=== PATIENT | female | born 1975 ===

== ENCOUNTER 2017-08-10 10:47 | Emergency (ER) | payer OTHER ==
[2017-08-10 10:56] VITALS: BP 135/68; PULSE 83; RESP 20; TEMP 97.9; O2SAT 98
[2017-08-10 10:57] VITALS: BMI 31.2
--- NOTE | 2017-08-10 11:16 | ED PDOC ---
Lower Extremity Pain/Injury Time Seen by Provider: 08/10/17 11:00 Chief Complaint (Nursing): Lower Extremity Problem/Injury Chief Complaint (Provider): Left leg injury History Per: Patient History/Exam Limitations: no limitations Onset/Duration Of Symptoms: Days (x3 days) Current Symptoms Are (Timing): Still Present Additional Complaint(s): 42 y/o female presents to the ED complaining of pain in left leg x 3 days. Patient was seen in [facility] on 08/08/17 for left Achilles tendon rupture that occurred after dancing and was asked to follow up with infection control specialist. Patient notes persisting pain. Denies any further medical complaints. Past Medical History Reviewed: Historical Data, Nursing Documentation, Vital Signs Vital Signs: Last Vital Signs Temp 97.9 F 08/10/17 10:56 Pulse 83 08/10/17 10:56 Resp 20 08/10/17 10:56 BP 135/68 08/10/17 10:56 Pulse Ox 98 08/10/17 10:56 - Medical History PMH: Chronic Kidney Disease - Surgical History Surgical History: (2) - Family History Family History: States: Unknown Family Hx - Social History Current smoker - smoking cessation education provided: No (former smoker) Alcohol: None Drugs: Denies - Immunization History Hx Tetanus Toxoid Vaccination: No Hx Influenza Vaccination: No Hx Pneumococcal Vaccination: No - Home Medications Home Medications: Ambulatory Orders Medication Instructions Recorded Naproxen [Naprosyn] 1 tab PO BID PRN #25 tab 08/08/17 traMADol [Ultram] 50 mg PO Q8 #20 tab 08/08/17 Ibuprofen [Motrin] 600 mg PO Q8 #12 tab 08/10/17 - Allergies Allergies/Adverse Reactions: Allergies Allergy/AdvReac Type Severity Reaction Status Date / Time No Known Allergies Allergy Verified 08/08/17 08:20 Review of Systems ROS Statement: Except As Marked, All Systems Reviewed And Found Negative (As per HPI, otherwise negative) Musculoskeletal: Positive for: Leg Pain (left leg pain) Physical Exam - Reviewed Nursing Documentation Reviewed: Yes Vital Signs Reviewed: Yes - Physical Exam Appears: Positive for: Non-toxic, No Acute Distress Skin: Positive for: Normal Color, Warm, Dry Cardiovascular/Chest: Positive for: Regular Rate, Rhythm. Negative for: Murmur Respiratory: Positive for: Normal Breath Sounds. Negative for: Accessory Muscle Use, Respiratory Distress Extremity: Positive for: Swelling (mild tendon swelling), Other (left ankle absence of achilles tendon ) Neurologic/Psych: Positive for: Alert, Oriented (x3) - ECG O2 Sat by Pulse Oximetry: 98 (RA) Pulse Ox Interpretation: Normal Medical Decision Making Medical Decision Making: Time: Initial Impression: Plan: Scribe Attestation: Documented by Troy Mccann acting as a scribe for Denisa Sahu MD. D/W Dr Garcia, pt to call office for appt. To be dc'ed with crutches, nonweight bearing. Scribe Attestation: All medical record entries made by the Scribe were at my direction and personally dictated by me. I have reviewed the chart and agree that the record accurately reflects my personal performance of the history, physical exam, medical decision making, and the department course for this patient. I have also personally directed, reviewed, and agree with the discharge instructions and disposition. Disposition - Clinical Impression Clinical Impression: Achilles tendon rupture - Patient ED Disposition Is Patient to be Admitted: No Counseled Patient/Family Regarding: Diagnosis, Need For Followup - Disposition Referrals: Alexander Garcia MD [Staff Provider] - Disposition: Routine/Home Disposition Time: 11:35 Condition: FAIR Prescriptions: Ibuprofen [Motrin] 600 mg PO Q8 #12 tab Instructions: Achilles Tendon Rupture (ED) Forms: [employer] (Sinhala) Print Language: NORTH KOREAN
== END 2017-08-10 12:35 | disposition home or self-care (01) ==
LOC: H.ER 10:47
DX: S86.102A Unspecified injury of other muscle(s) and tendon(s) of posterior muscle group at lower leg level, left leg, initial encounter (principal); X50.9XXA Other and unspecified overexertion or strenuous movements or postures, initial encounter; Y92.89 Other specified places as the place of occurrence of the external cause

== ENCOUNTER 2017-09-02 07:03 | Day surgery (SDC) | payer OTHER ==
[2017-09-02 07:05] VITALS: BMI 31.2
[2017-09-02 07:23] VITALS: RESP 18
--- NOTE | 2017-09-02 07:52 | ED PDOC ---
Lower Extremity Pain/Injury Time Seen by Provider: 09/02/17 07:05 Chief Complaint (Nursing): Lower Extremity Problem/Injury Chief Complaint (Provider): Lower Extremity Problem/Injury History Per: Patient History/Exam Limitations: no limitations Onset/Duration Of Symptoms: Days (x1 month) Current Symptoms Are (Timing): Still Present Additional History Per: Patient Additional Complaint(s): Smita Anne is a 42 year old female with no significant past medical history who presents to the ED complaining of left lower leg pain x1 month. Patient states she tripped and fell while dancing, resulting in her injury. Patient was seen previously at the ED on 08/07/17 and diagnosed with an Achilles tendon rupture. She was advised to followup with Dr. Garcia. States she is presenting to the ED today due to increased pain in the area. PMD: Non-[facility] Provider Past Medical History Reviewed: Historical Data, Nursing Documentation, Vital Signs Vital Signs: Last Vital Signs Temp 97.6 F 09/02/17 07:22 Pulse 75 09/02/17 07:22 Resp 18 09/02/17 07:22 BP 142/79 09/02/17 07:22 Pulse Ox 96 09/02/17 07:22 - Medical History PMH: Chronic Kidney Disease - Surgical History Surgical History: (2) - Family History Family History: States: Unknown Family Hx - Social History Current smoker - smoking cessation education provided: No Ex-Smoker (has not smoked in the last 12 months): Yes Alcohol: None Drugs: Denies - Immunization History Hx Tetanus Toxoid Vaccination: No Hx Influenza Vaccination: No Hx Pneumococcal Vaccination: No - Home Medications Home Medications: Ambulatory Orders Medication Instructions Recorded Docusate [Colace] 100 mg PO TID PRN 09/02/17 Ondansetron [Zofran] 4 mg PO Q4 PRN 09/02/17 oxyCODONE/Acetaminophen [Percocet 1 tab PO Q4 PRN 09/02/17 5/325 mg Tab] - Allergies Allergies/Adverse Reactions: Allergies Allergy/AdvReac Type Severity Reaction Status Date / Time No Known Allergies Allergy Verified 09/02/17 07:15 Review of Systems ROS Statement: Except As Marked, All Systems Reviewed And Found Negative Musculoskeletal: Positive for: Leg Pain (LLE) Physical Exam - Reviewed Nursing Documentation Reviewed: Yes Vital Signs Reviewed: Yes - Physical Exam Appears: Positive for: Well, Non-toxic, No Acute Distress Cardiovascular/Chest: Positive for: Regular Rate, Rhythm. Negative for: Murmur Respiratory: Positive for: Normal Breath Sounds. Negative for: Respiratory Distress Gastrointestinal/Abdominal: Positive for: Normal Exam, Bowel Sounds, Soft. Negative for: Tenderness Extremity: Positive for: Other (Hard cast on left leg from toes to lower leg) Neurologic/Psych: Positive for: Alert, Oriented (x3) - Laboratory Results Result Diagrams: 09/02/17 08:38 09/02/17 08:38 - ECG O2 Sat by Pulse Oximetry: 96 (RA) Pulse Ox Interpretation: Normal Medical Decision Making Medical Decision Making: Time: 07:47 Initial Impression: Evaluation s/p trip and fall Plan: --Patient declining pain medication --Left Foot X-Ray 3 views --Contacted Dr. Garcia Time: 8:16 --Contacted Dr. Garcia. Requested pre-op and blood work on patient. Time: 11:15 --Labs, EKG, and CXR reviewed. Patient stable for admission to OR per Dr. Garcia. Scribe Attestation: Documented by Eric Kitchen, acting as a scribe for Valentine Penaloza MD. Provider Scribe Attestation: All medical record entries made by the Scribe were at my direction and personally dictated by me. I have reviewed the chart and agree that the record accurately reflects my personal performance of the history, physical exam, medical decision making, and the department course for this patient. I have also personally directed, reviewed, and agree with the discharge instructions and disposition. Disposition - Clinical Impression Clinical Impression: Ankle injury - Patient ED Disposition Is Patient to be Admitted: Yes - Disposition Disposition Time: 08:35 Condition: STABLE
[2017-09-02 08:48] LABS: BASO # 0.1 K/uL (0.0-0.2); BASO % 0.7 % (0.0-2.0); EOS # 0.1 K/uL (0.0-0.7); EOS % 1.6 % (0.0-4.0); HEMATOCRIT 43.1 % (34.0-47.0); LYMPH # 3.1 K/uL (1.0-4.3); LYMPH % 33.3 % (20.0-40.0); MEAN CELL VOLUME 88.7 fl (81.0-99.0); MEAN CORPUSCULAR HEMOGLOBIN 29.1 pg (27.0-31.0); MEAN CORPUSCULAR HGB CONC 32.8 g/dL (33.0-37.0); MEAN PLATELET VOLUME 8.6 fl (7.2-11.7); MONO # 0.6 K/uL (0.0-0.8); NEUT # 5.3 K/uL (1.8-7.0); NEUT % 57.4 % (50.0-75.0); NRBC % 0.1 % (0.0-0.0); RED CELL DISTRIBUTION WIDTH 14.2 % (11.5-14.5); WHITE BLOOD COUNT 9.2 K/uL (4.8-10.8)
[2017-09-02 09:21] LABS: ALB/GLOB RATIO 1.4 (1.0-2.1); ALKALINE PHOSPHATASE 40 U/L (38-126); ALT/SGPT 60 U/L (9-52); AST/SGOT 30 U/L (14-36); BILIRUBIN,TOTAL 0.5 mg/dl (0.2-1.3); BLOOD UREA NITROGEN 12 mg/dl (7-17); CALCIUM 9.3 mg/dL (8.4-10.2); CARBON DIOXIDE 22 mmol/L (22-30); CHLORIDE 108 mmol/L (98-107); GFR AFRICAN-AMERICAN > 60; GLUCOSE,RANDOM 99 mg/dL (65-105); POTASSIUM 4.4 MMOL/L (3.6-5.0); SODIUM 142 mmol/l (132-148); TOTAL PROTEIN 7.8 G/DL (6.3-8.2)
--- NOTE | 2017-09-02 11:28 | RAD ---
HISTORY: foot pain COMPARISON: No prior. FINDINGS: LUNGS: The lungs are clear. PLEURA: No significant pleural effusion identified, no pneumothorax apparent. CARDIOVASCULAR: Normal. OSSEOUS STRUCTURES: No significant abnormalities. VISUALIZED UPPER ABDOMEN: Normal. OTHER FINDINGS: None. IMPRESSION: No active pulmonary disease.
[2017-09-02] MEDS ORDERED: Bupivacaine 0.5% Inj(30mL) ONE (12:14)
[2017-09-02] MEDS ORDERED: Rocuronium 10 mg/ml (5 ml) ONE (12:23)
[2017-09-02] MEDS ORDERED: Propofol 10 mg/ml Inj (20 ML) ONE (12:23)
[2017-09-02] MEDS ORDERED: Succinylcholine 200 mg/10 ml Inj IV ONE (12:23)
[2017-09-02] MEDS ORDERED: Lidocaine 4% (Laryng-O-Jet) Kit MM ONE (12:23)
[2017-09-02] MEDS ORDERED: ceFAZolin IV 1 gm in Dextrose 1 GM/50 ML BAG IVPB ONE (12:32)
[2017-09-02] MEDS ORDERED: Lactated Ringer's 1,000 ML IV ONE (12:46)
[2017-09-02] MEDS ORDERED: Midazolam 2 MG/2 ML VIAL ONE (12:49)
[2017-09-02] MEDS ORDERED: Dexamethasone 4 mg/1 ml ONE (13:29)
--- NOTE | 2017-09-02 14:22 | PCM.SURG1 ---
Surgeon's Initial Post Op Note - Surgeon's Notes Surgeon: Alexander Garcia MD Photographic Restorer: Danielito Cardona MD Type of Anesthesia: General Endo Pre-Operative Diagnosis: Left ankle achilles tendon rupture Operative Findings: see op report Post-Operative Diagnosis: same as pre-op dx Operation Performed: Left ankle open achilles tendon repair Specimen/Specimens Removed: none Estimated Blood Loss: EBL {In ML}: 15 Date of Surgery/Procedure: 09/02/17 Time of Surgery/Procedure: 13:30
[2017-09-02] MEDS ORDERED: HYDROmorphone 0.5 mg/0.5 ml ISec IVP PRN (14:24)
[2017-09-02] MEDS ORDERED: Oxycodone/Acetaminophen 5/325 mg Tab PO PRN (14:26)
--- NOTE | 2017-09-02 14:27 | PCM.ANESB2 ---
Popliteal Nerve Block - Popliteal Nerve Block Date of Procedure: 09/02/17 Anesthesiologist: Lars Pre-Procedure Diagnosis: Left Achilles tendon rupture Post-Procedure Diagnosis: Same Procedure Performed: Popliteal Nerve Block Left - Procedure Popliteal Nerve Block: This procedure was explained to the patient that it is for post-operative pain management. Consent was obtained after a thorough discussion with the patient regarding the benefits and possible complications of local anesthetic block of the sciatic nerve at the popliteal level. The patient was brought to the operating room and standard monitors are applied. Time-out was held with the circulating nurse to confirm the correct surgery and the appropriate block. Under general anesthesia, patient's operative leg was gently raised and supported and the groove in between the biceps femoris and vastus lateralis muscles was carefully palpated. The skin approximately 8cm above the popliteal crease was then marked. The ultrasound transducer was then applied to the posterior thigh approximately 8cm above the popliteal crease in the transverse plane and the sciatic nerve before its division was visualized lateral to the popliteal artery and in between the bicep femoris and semimembranosus/ semitendinosus muscles. After identification, the lateral portion of the thigh was prepped with Chloraprep. At this point, a # 21 gauge Stimuplex insulated 4 inch needle was inserted into pre-marked area and advanced in a perpendicular direction. The needle was inserted above the ultrasound transducer in-plane towards the sciatic nerve in a [id number] direction. Needle advancement was performed carefully under direct ultrasound visualization. Nerve stimulator was used and contraction of the __left___ calf was elicited at a current of ___0.4__ MA. After repeated negative aspiration, __2__cc of _0.5___ % ____bupivicaine with 1:200,000 epinephrine was injected and this was flowed with ___25___ cc of ____ 0.5__% ___bupivicaine with 1:200,000 epinephrine . Under ultrasound guidance the local anesthetics were observed surrounding sciatic nerve . The needle was removed intact. The patient tolerated the popliteal nerve block well with stable vital signs and was subsequently prepared for the surgery.
[2017-09-02] MEDS ORDERED: Lactated Ringer's 1,000 ML IV SCH (14:30)
--- NOTE | 2017-09-02 17:18 | RAD ---
PROCEDURE: Left Foot Radiographs. HISTORY: l foot pain COMPARISON: None. FINDINGS: BONES: Cast obscures fine details. There is no acute displaced fracture or bone destruction. Bone alignment and mineralization are normal. 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 SOFT TISSUES: The soft tissues are within normal limits. OTHER FINDINGS: None. IMPRESSION: No acute fracture, dislocation or bone destruction.
[2017-09-02 18:29] VITALS: BP 117/81; PULSE 89; TEMP 97.9; O2SAT 96
--- NOTE | 2017-09-03 08:33 | OP ---
PROCEDURE DATE: 09/02/2017 PREOPERATIVE DIAGNOSIS: Complete Achilles tendon rupture. POSTOPERATIVE DIAGNOSIS: Complete Achilles tendon rupture. PROCEDURES: 1. Left Achilles open repair using FiberWire sutures. 2. Placement of a short leg splint. TYPE OF ANESTHESIA: General. ESTIMATED BLOOD LOSS: 5 mL SPECIMEN: None. COMPLICATIONS: None. HISTORY: The patient is a 42-year-old female who presented to the emergency room with history of Achilles tendon rupture a complete Achilles tendon rupture proximal to the calcaneal tuberosity. The patient was seen in the office, indicated for acute Achilles tendon repair. I reviewed the risk and benefits of the surgery with the patient in detail. The risks included but not limited to bleeding, infection, nerve and vessel damage, continued pain, blood clots among others. I also presented the patient with the option of nonoperative management; however, the patient wanted to proceed with the operative management after careful consideration. DESCRIPTION OF PROCEDURE: The patient was admitted to the ER for acute symptoms of pain. She underwent preoperative medical workup. She was brought into preop holding area. A laterality sheet was completed confirming the patient's left ankle to be correct operative site. An informed consent was signed from the patient. Left ankle was marked. The patient was brought into operating room table. She underwent general anesthesia. She was given appropriate prophylactic antibiotics. She was placed on operating bed in a prone position. The left ankle was draped and prepped in a standard sterile manner and also a tourniquet was applied to the patient's left thigh. First, a timeout was completed confirming the patient's left ankle as the correct operative site. Then, using a #10 blade, a 5- cm incision was made on a medially. Dissection was taken down into the paratenon which was exposed. There was apparent rupture with retraction of the Achilles tendon. Both ends of the ruptured tendon was freed and all the fibrotic tissue was excised for repair. A #2 FiberWires were placed in a Krackow fashion in both ends and with the foot held with plantarflexion, the sutures were tied with all four limbs, with the ankle in about 30 degrees of flexion. The patient had secure fixation. Wound was copiously irrigated. The paratenon was closed using 0 Vicryl sutures. Skin was closed in a standard sterile manner. Afterwards, the patient was placed in a short leg splint. She will remain nonweightbearing. The postop instruction to take DVT prophylaxis. There were no complications of surgery. Alexander Garcia MD
--- NOTE | 2017-09-03 11:25 | CARD ---
APPROVED REPORT EKG Measurement Heart [id number] FL [id number] [id number] <Conclusion> Normal sinus rhythm Normal ECG
== END 2017-09-02 18:30 | disposition home or self-care (01) ==
LOC: H.ER 07:03 → H.ERHOLD 10:30 → UNDOADMIN 10:30 → H.SDS 10:30 → UNDODISIN 18:30 → H.SDS 18:30
PROVIDERS: ATTEND Orthopaedic Surgery
DX: S86.012A Strain of left Achilles tendon, initial encounter (principal); W01.0XXA Fall on same level from slipping, tripping and stumbling without subsequent striking against object, initial encounter; Y93.41 Activity, dancing; Y92.9 Unspecified place or not applicable; N18.9 Chronic kidney disease, unspecified; Z87.891 Personal history of nicotine dependence
CPT/HCPCS: 27650; 71010; 73630; 80053; 81025; 85025; 85610; 86850; 86900; 93005; 99284; J0330; J0690; J1100; J2001; J2250; J2405; J2704; J2765; J3010; J7030; J7120

== ENCOUNTER 2017-10-01 10:46 | Emergency (ER) | payer OTHER ==
[2017-10-01 10:46] VITALS: BMI 31.2
[2017-10-01 11:03] VITALS: BP 125/58; PULSE 83; RESP 18; TEMP 97.8; O2SAT 98
--- NOTE | 2017-10-01 12:38 | ED PDOC ---
Lower Extremity Pain/Injury Time Seen by Provider: 10/01/17 12:30 Chief Complaint (Nursing): Lower Extremity Problem/Injury Chief Complaint (Provider): Wound check History Per: Patient History/Exam Limitations: no limitations Onset/Duration Of Symptoms: Days (x3) Current Symptoms Are (Timing): Still Present Additional Complaint(s): 42 y/o female with a history of Achilles rupture s/p surgical repair, who presents to the ER today for a wound check. Patient had the Achilles tendon repair with Dr. Garcia on 09/02/17. Now complains of area of pain along the wound and is concerned because she is supposed to begin physical therapy today. Denies any fever or chills. Patient has her next appointment with Dr. Garcia on Friday. PMD: Provider TBD Past Medical History Reviewed: Historical Data, Nursing Documentation, Vital Signs Vital Signs: Last Vital Signs Temp 97.8 F 10/01/17 10:59 Pulse 83 10/01/17 10:59 Resp 18 10/01/17 10:59 BP 125/58 L 10/01/17 10:59 Pulse Ox 98 10/01/17 10:59 - Medical History PMH: Chronic Kidney Disease - Surgical History Surgical History: (2) Other surgeries: Achilles tendon repair 09/02/17 - Family History Family History: States: Unknown Family Hx - Social History Ex-Smoker (has not smoked in the last 12 months): Yes Alcohol: None Drugs: Denies - Immunization History Hx Tetanus Toxoid Vaccination: No Hx Influenza Vaccination: No Hx Pneumococcal Vaccination: No - Home Medications Home Medications: Ambulatory Orders Medication Instructions Recorded Docusate [Colace] 100 mg PO TID PRN 09/02/17 Ondansetron [Zofran] 4 mg PO Q4 PRN 09/02/17 oxyCODONE/Acetaminophen [Percocet 1 tab PO Q4 PRN 09/02/17 5/325 mg Tab] - Allergies Allergies/Adverse Reactions: Allergies Allergy/AdvReac Type Severity Reaction Status Date / Time No Known Allergies Allergy Verified 10/01/17 10:59 Review of Systems ROS Statement: Except As Marked, All Systems Reviewed And Found Negative Constitutional: Negative for: Fever, Chills Musculoskeletal: Positive for: Leg Pain (near incision site) Skin: Positive for: Lesions (surgical incision at left Achilles tendon) Physical Exam - Reviewed Nursing Documentation Reviewed: Yes Vital Signs Reviewed: Yes - Physical Exam Appears: Positive for: Well, Non-toxic, No Acute Distress Head Exam: Positive for: ATRAUMATIC, NORMAL INSPECTION, NORMOCEPHALIC Skin: Positive for: Normal Color, Warm, Dry Eye Exam: Positive for: EOMI, Normal appearance, PERRL Extremity: Positive for: Other (Well-healing incision at the posterior aspect of left distal leg, no erythema noted. Small region of thick, hardened skin, tender with palpation. Negative homans sign). Negative for: Calf Tenderness ( and calf swelling) Neurologic/Psych: Positive for: Alert, Oriented - ECG O2 Sat by Pulse Oximetry: 98 (RA) Pulse Ox Interpretation: Normal Medical Decision Making Medical Decision Making: Clinical Impression: Leg pain Plan: Patient will follow up with surgeon as scheduled on Friday. There are no signs or symptoms of infection at this time. Advised patient to put extra gauze in area to avoid pressure/irritation from shoes. There is agreement to discharge plan. Return if symptoms persist or worsen. Scribe Attestation: Documented by Gela Walters, acting as a scribe for Charanjit Mccann PA-C Provider Scribe Attestation: All medical record entries made by the Scribe were at my direction and personally dictated by me. I have reviewed the chart and agree that the record accurately reflects my personal performance of the history, physical exam, medical decision making, and the department course for this patient. I have also personally directed, reviewed, and agree with the discharge instructions and disposition. Disposition - Clinical Impression Clinical Impression: Leg pain - Patient ED Disposition Is Patient to be Admitted: No Counseled Patient/Family Regarding: Diagnosis, Need For Followup - Disposition Disposition: Routine/Home Disposition Time: 12:39 Condition: FAIR Additional Instructions: Follow up with Dr. Garcia as scheduled. Apply extra gauze to wound area. Instructions: Acute Wound Care (ED) Print Language: [place] CITIZEN
== END 2017-10-01 13:09 | disposition home or self-care (01) ==
LOC: H.ER 10:46
DX: Z48.89 Encounter for other specified surgical aftercare (principal)

== ENCOUNTER 2017-10-13 13:25 | Emergency (ER) | payer OTHER ==
[2017-10-13 13:25] VITALS: BMI 34.2
[2017-10-13 13:41] VITALS: BP 115/55; PULSE 68; RESP 18; TEMP 98; O2SAT 98
--- NOTE | 2017-10-13 15:05 | ED PDOC ---
Lower Extremity Pain/Injury Time Seen by Provider: 10/13/17 13:45 Chief Complaint (Nursing): Lower Extremity Problem/Injury Chief Complaint (Provider): Left ankle pain History Per: Patient, [employer] ([id number]) History/Exam Limitations: no limitations Onset/Duration Of Symptoms: Days Current Symptoms Are (Timing): Still Present Additional History Per: Patient Additional Complaint(s): 42yo female, recently had surgery on her left Achilles tendon, presents to ED with complaints of pain to her left foot. Patient states when she was cleaning her surgical site, she saw a "thread sticking out" and when she touched it, it hurt. She denies any drainage or discharge from the site. Patient denies any fever, weakness, numbness or tingling. No other complaints. Past Medical History Reviewed: Historical Data, Nursing Documentation, Vital Signs Vital Signs: Last Vital Signs Temp 98 F 10/13/17 13:39 Pulse 68 10/13/17 13:39 Resp 18 10/13/17 13:39 BP 115/55 L 10/13/17 13:39 Pulse Ox 98 10/13/17 13:39 - Medical History PMH: Chronic Kidney Disease - Surgical History Surgical History: (2) Other surgeries: Left foot surgery - Family History Family History: States: Unknown Family Hx - Immunization History Hx Tetanus Toxoid Vaccination: No Hx Influenza Vaccination: No Hx Pneumococcal Vaccination: No - Home Medications Home Medications: Ambulatory Orders Medication Instructions Recorded No Known Home Med 10/13/17 - Allergies Allergies/Adverse Reactions: Allergies Allergy/AdvReac Type Severity Reaction Status Date / Time No Known Allergies Allergy Verified 10/13/17 12:06 Review of Systems Constitutional: Negative for: Fever, Chills Musculoskeletal: Positive for: Foot Pain (left) Neurological: Negative for: Weakness, Numbness Physical Exam - Reviewed Nursing Documentation Reviewed: Yes Vital Signs Reviewed: Yes - Physical Exam Appears: Positive for: Non-toxic, No Acute Distress Head Exam: Positive for: ATRAUMATIC, NORMAL INSPECTION, NORMOCEPHALIC Skin: Positive for: Normal Color Eye Exam: Positive for: Normal appearance ENT: Positive for: Normal ENT Inspection Neck: Positive for: Normal Respiratory: Negative for: Respiratory Distress Pulses-Dorsalis Pedis (L): 2+ Extremity: Positive for: Swelling (swelling noted to left ankle), Other (Well healing incision site on left foot. Suture in knot, noted to proximal end of incision site. NO erythema, drainage noted.). Negative for: Deformity Neurologic/Psych: Positive for: Alert, Oriented. Negative for: Motor/Sensory Deficits - ECG O2 Sat by Pulse Oximetry: 98 (RA) Pulse Ox Interpretation: Normal Medical Decision Making Medical Decision Making: Impression: Left ankle pain Plan: -- Call placed to Dr. Garcia Scribe Attestation: Documented by Myra Briseno acting as a scribe for VICK Argueta Provider Attestation: All medical record entries made by the Scribe were at my direction and personally dictated by me. I have reviewed the chart and agree that the record accurately reflects my personal performance of the history, physical exam, medical decision making, and the department course for this patient. I have also personally directed, reviewed, and agree with the discharge instructions and disposition. Disposition - Clinical Impression Clinical Impression: Visit for wound check - Patient ED Disposition Is Patient to be Admitted: No - Disposition Referrals: Alexander Garcia MD [Staff Provider] - Disposition: Routine/Home Disposition Time: 16:00 Condition: GOOD Additional Instructions: Please follow-up with Dr. Garcia. Instructions: Care For Your Absorbable Stitches (ED) Forms: [facility] (Australian) Print Language: [place]URKM[place]
== END 2017-10-13 16:11 | disposition home or self-care (01) ==
LOC: H.ER 13:25
DX: Z47.89 Encounter for other orthopedic aftercare (principal)